=== PATIENT | male | born 1985 | race American Indian/Alaskan Native ===

== ENCOUNTER 2018-06-04 09:29 | Emergency (ER) | payer SELFPAY ==
[2018-06-04 09:33] VITALS: BP 126/77
== END 2018-06-04 15:18 | disposition left against medical advice (07) ==
LOC: ED 09:29 → EDSEX 09:29 → ED 15:18
DX: R10.10 Upper abdominal pain, unspecified (principal); Z53.21 Procedure and treatment not carried out due to patient leaving prior to being seen by health care provider

== ENCOUNTER 2018-07-17 10:46 | Emergency (ER) | payer SELFPAY ==
--- NOTE | 2018-07-17 13:03 | Emergency Department Report ---
Blank Doc - Documentation Documentation: Patient is a [age]-year-old who is here complaining of some mild abdominal crampiness left lower quadrant as well as 24 hours of bloody mucus per rectum. Patient denies any fever chills nausea or vomiting. Patient did have a slight head cold approximately week ago. Patient on focused physical exam has normal bowel sounds abdomen is soft and nontender. Patient has a picture of her stools which does show a small amount of blood surrounding brown stool. CBC was ordered to ensure the patient is not severely anemic patient be reassessed
[2018-07-17 13:20] LABS: Basophils % (Auto) 0.4 % (0.0-1.8); Eosinophils # (Auto) 0.1 K/mm3 (0.0-0.4); Eosinophils % (Auto) 1.7 % (0.0-4.3); Hematocrit 44.6 % (35.5-45.6); Hemoglobin 15.1 gm/dl (11.8-15.2); Lymphocytes # (Auto) 1.7 K/mm3 (1.2-5.4); Lymphocytes % (Auto) 25.9 % (13.4-35.0); Mean Corpuscular HGB Conc 34 % (32-34); Mean Corpuscular Hemoglobin 30 pg (28-32); Mean Corpuscular Volume 87 fl (84-94); Monocytes # (Auto) 0.7 K/mm3 (0.0-0.8); Monocytes % (Auto) 10.5 % (0.0-7.3); Platelet Count 206 K/mm3 (140-440); Red Blood Count 5.13 M/mm3 (3.65-5.03)
[2018-07-17 13:40] LABS: BUN/Creatinine Ratio 9; Blood Urea Nitrogen 6 mg/dL (9-20); Calcium 8.6 mg/dL (8.4-10.2); Hemolysis Index 26
--- NOTE | 2018-07-17 13:55 | Emergency Department Report ---
ED General Adult HPI - General Chief complaint: GI Bleed Stated complaint: BLOODY STOOL Time Seen by Provider: 07/17/18 12:55 Source: patient Mode of arrival: Ambulatory Limitations: No Limitations - History of Present Illness Initial comments: Patient is a 36 year-old who is here complaining of some mild abdominal crampiness left lower quadrant as well as 24 hours of bloody mucus per rectum. Patient denies any fever chills nausea or vomiting. Patient did have a slight head cold approximately week ago. Patient on focused physical exam has normal bowel sounds abdomen is soft and nontender. Patient has a picture of her stools which does show a small amount of blood surrounding brown stool. Severity scale (0 -10): 2 Quality: other (mild crampy pain) - Related Data Previous Rx's Medication Instructions Recorded Last Taken Type Ciprofloxacin HCl [Cipro] 500 mg PO BID #14 tablet 07/17/18 Unknown Rx Dicyclomine [Bentyl] 10 mg PO QID #15 capsule 07/17/18 Unknown Rx metroNIDAZOLE [Flagyl] 500 mg PO Q12HR #14 tab 07/17/18 Unknown Rx Allergies Allergy/AdvReac Type Severity Reaction Status Date / Time hydrocodone Allergy Angioedema Verified 06/04/18 09:28 ED Review of Systems ROS: Stated complaint: BLOODY STOOL Other details as noted in HPI Comment: All other systems reviewed and negative ED Past Medical Hx - Past Medical History Previous Medical History?: No - Surgical History Past Surgical History?: No - Social History Smoking Status: Never Smoker Substance Use Type: None - Medications Home Medications: Home Medications Medication Instructions Recorded Confirmed Last Taken Type Ciprofloxacin HCl [Cipro] 500 mg PO BID #14 tablet 07/17/18 Unknown Rx Dicyclomine [Bentyl] 10 mg PO QID #15 capsule 07/17/18 Unknown Rx metroNIDAZOLE [Flagyl] 500 mg PO Q12HR #14 tab 07/17/18 Unknown Rx ED Physical Exam - General Limitations: No Limitations General appearance: alert, in no apparent distress - Head Head exam: Present: atraumatic, normocephalic - Eye Eye exam: Present: normal appearance - ENT ENT exam: Present: mucous membranes moist - Neck Neck exam: Present: normal inspection - Respiratory Respiratory exam: Present: normal lung sounds bilaterally. Absent: respiratory distress, wheezes, rales, rhonchi - Cardiovascular Cardiovascular Exam: Present: regular rate, normal rhythm. Absent: systolic murmur, diastolic murmur, rubs, gallop - GI/Abdominal GI/Abdominal exam: Present: soft, normal bowel sounds. Absent: distended, tenderness, guarding, rebound - Rectal Rectal exam: Present: deferred - Extremities Exam Extremities exam: Present: normal inspection - Back Exam Back exam: Present: normal inspection - Neurological Exam Neurological exam: Present: alert, oriented X3 - Psychiatric Psychiatric exam: Present: normal affect, normal mood - Skin Skin exam: Present: warm, dry, intact, normal color. Absent: rash ED Course Vital Signs 07/17/18 12:05 Temperature 98.5 F Pulse Rate 70 Respiratory 16 Rate Blood Pressure 130/80 O2 Sat by Pulse 96 Oximetry ED Medical Decision Making - Lab Data Result diagrams: 07/17/18 13:12 07/17/18 13:09 - Medical Decision Making Patient will be referred to GI for continued bleeding. Patient empirically treated for possible colitis be discharged home. Patient is stable condition and not in distress. Critical care attestation.: If time is entered above; I have spent that time in minutes in the direct care of this critically ill patient, excluding procedure time. ED Disposition Clinical Impression: GI bleed Qualifiers: GI bleed type/associated pathology: unspecified gastrointestinal hemorrhage type Qualified Code(s): K92.2 - Gastrointestinal hemorrhage, unspecified Disposition: -01 TO HOME OR SELFCARE Is pt being admited?: No Does the pt Need Aspirin: No Condition: Stable Instructions: Gastrointestinal Bleeding (ED) Referrals: CASSANDRA HUSAIN MD [Staff Physician] - 3-5 Days Time of Disposition: 13:55
[2018-07-17 14:07] VITALS: BP 124/75
== END 2018-07-17 14:06 | disposition home or self-care (01) ==
LOC: ED 10:46
DX: K92.2 Gastrointestinal hemorrhage, unspecified (principal); Z88.5 Allergy status to narcotic agent
CPT/HCPCS: 36415; 80048; 85025; 99283

== ENCOUNTER 2019-03-20 17:49 | Emergency (ER) | payer OTHER ==
[2019-03-20 18:08] VITALS: BP 131/74
[2019-03-20] MEDS ORDERED: BICILLIN L-A IM ONE (19:26)
--- NOTE | 2019-03-20 19:48 | Emergency Department Report ---
ED General Adult HPI - General Chief complaint: Recheck/Abnormal Lab/Rx Stated complaint: STOMACH VIRUS Time Seen by Provider: 03/20/19 19:05 Source: patient Mode of arrival: Ambulatory Limitations: No Limitations - History of Present Illness Initial comments: Patient is a 33-year-old -[place] female with no past medical history presents to the ED requesting for treatment after being diagnosed with activity syphilis infection 2 weeks ago. Patient states that she tested positive for syphilis about 2 weeks ago and was referred to the health department for treatment but states that her appointment at the health department this one recovery and she cannot wait for that time to get her treatment. Patient denies abdominal pain, nausea, vomiting, fever, chills, dysuria, any genital rashes or lesions, vaginal discharge, headache, dizziness, chest pain or shortness of breath and sore throat. MD Complaint: Needs treatment for a recent positive RPR test -: Sudden, week(s) (2) Radiation: non-radiation Severity scale (0 -10): 0 Quality: other (none) Consistency: constant Improves with: none Associated Symptoms: denies: confusion, chest pain, cough, diaphoresis, fever/chills, headaches, loss of appetite, malaise, nausea/vomiting, rash, seizure, shortness of breath, syncope, weakness Treatments Prior to Arrival: none - Related Data Previous Rx's Medication Instructions Recorded Last Taken Type Ciprofloxacin HCl [Cipro] 500 mg PO BID #14 tablet 07/17/18 Unknown Rx Dicyclomine [Bentyl] 10 mg PO QID #15 capsule 07/17/18 Unknown Rx metroNIDAZOLE [Flagyl] 500 mg PO Q12HR #14 tab 07/17/18 Unknown Rx Fluconazole [Diflucan TAB] 150 mg PO ONCE #1 tablet 03/20/19 Unknown Rx Sulfamethoxazole/Trimethoprim 1 each PO Q12H #20 tablet 03/20/19 Unknown Rx [Bactrim DS TAB] Allergies Allergy/AdvReac Type Severity Reaction Status Date / Time hydrocodone Allergy Angioedema Verified 03/20/19 18:08 ED Review of Systems ROS: Stated complaint: STOMACH VIRUS Other details as noted in HPI Comment: All other systems reviewed and negative Constitutional: no symptoms reported, see HPI. denies: chills, fever, malaise, weakness Eyes: as per HPI. denies: eye pain, eye discharge, vision change ENT: as per HPI. denies: ear pain, throat pain, dental pain, hearing loss Respiratory: no symptoms reported, see HPI, cough. denies: shortness of breath, SOB with exertion, SOB at rest, wheezing Cardiovascular: as per HPI. denies: chest pain, palpitations, dyspnea on exertion, edema, syncope, paroxysmal nocturnal dyspnea Endocrine: no symptoms reported, see HPI. denies: excessive sweating, flushing, intolerance to cold, increased thirst Gastrointestinal: as per HPI. denies: abdominal pain, nausea, diarrhea, constipation, hematemesis Genitourinary: as per HPI. denies: urgency, dysuria, frequency, hematuria, discharge, abnormal menses Musculoskeletal: as per HPI Skin: as per HPI. denies: rash, lesions, change in color, change in hair/nails, pruritus Neurological: as per HPI. denies: headache, weakness, numbness, paresthesias Psychiatric: as per HPI Hematological/Lymphatic: as per HPI ED Past Medical Hx - Past Medical History Previous Medical History?: No - Surgical History Past Surgical History?: No - Social History Smoking Status: Never Smoker - Medications Home Medications: Home Medications Medication Instructions Recorded Confirmed Last Taken Type Ciprofloxacin HCl [Cipro] 500 mg PO BID #14 tablet 07/17/18 Unknown Rx Dicyclomine [Bentyl] 10 mg PO QID #15 capsule 07/17/18 Unknown Rx metroNIDAZOLE [Flagyl] 500 mg PO Q12HR #14 tab 07/17/18 Unknown Rx Fluconazole [Diflucan TAB] 150 mg PO ONCE #1 tablet 03/20/19 Unknown Rx Sulfamethoxazole/Trimethoprim 1 each PO Q12H #20 tablet 03/20/19 Unknown Rx [Bactrim DS TAB] ED Physical Exam - General Limitations: No Limitations General appearance: alert, in no apparent distress - Head Head exam: Present: atraumatic, normocephalic, normal inspection - Eye Eye exam: Present: normal appearance, PERRL, EOMI. Absent: scleral icterus, conjunctival injection, nystagmus, periorbital tenderness Pupils: Present: normal accommodation - ENT ENT exam: Present: normal exam, normal orophraynx, mucous membranes moist, TM's normal bilaterally, normal external ear exam - Neck Neck exam: Present: normal inspection. Absent: tenderness, meningismus, full ROM, lymphadenopathy - Respiratory Respiratory exam: Present: normal lung sounds bilaterally. Absent: respiratory distress, wheezes, rales, rhonchi - Cardiovascular Cardiovascular Exam: Present: regular rate, normal rhythm. Absent: bradycardia, tachycardia, irregular rhythm, normal heart sounds, systolic murmur - GI/Abdominal GI/Abdominal exam: Present: soft, normal bowel sounds. Absent: distended, tenderness, guarding, hyperactive bowel sounds, hypoactive bowel sounds - Rectal Rectal exam: Present: deferred - Extremities Exam Extremities exam: Present: normal inspection, normal capillary refill. Absent: full ROM, tenderness - Back Exam Back exam: Present: normal inspection, full ROM, tenderness. Absent: CVA tenderness (R), CVA tenderness (L), muscle spasm, paraspinal tenderness, verteb ral tenderness - Neurological Exam Neurological exam: Present: alert, oriented X3, CN II-XII intact, normal gait, reflexes normal - Psychiatric Psychiatric exam: Present: normal affect - Skin Skin exam: Present: warm, dry, intact, normal color. Absent: rash, cyanosis, diaphoretic, erythema ED Course Vital Signs 03/20/19 18:03 Temperature 98.1 F Pulse Rate 73 Respiratory 16 Rate Blood Pressure 131/74 O2 Sat by Pulse 99 Oximetry ED Medical Decision Making - Medical Decision Making Patient is alert and oriented 3 and is starting in distress with stable vital signs. Patient received penicillin 2.4 Million Units intramuscular injection. The UA test was positive for acute UTI. The patient was discharged home and advised follow-up with the health Department as previously scheduled for further evaluation. Patient discharged home on antibiotics for acute UTI. Patient advised to return to the ED immediately if symptoms get worse. - Differential Diagnosis Syphilis, Gonorrhea, acute UTI Critical care attestation.: If time is entered above; I have spent that time in minutes in the direct care of this critically ill patient, excluding procedure time. ED Disposition Clinical Impression: Sexually transmitted disease (STD), Syphilis (acquired), Acute urinary tract infection Disposition: TO HOME OR SELFCARE Is pt being admited?: No Does the pt Need Aspirin: No Condition: Stable Instructions: Sexually Transmitted Diseases (ED), Syphilis (ED), Urinary Tract Infection in Women (ED) Additional Instructions: FOLLOW UP WITH THE HEALTH DEPARTMENT PREVIOUSLY SCHEDULED. Prescriptions: Sulfamethoxazole/Trimethoprim [Bactrim DS TAB] 1 each PO Q12H #20 tablet Fluconazole [Diflucan TAB] 150 mg PO ONCE #1 tablet Referrals: [facility] [Outside] - 3-5 Days Time of Disposition: 19:57 Print Language: SAO TOMEAN
[2019-03-20 20:22] LABS: Bilirubin,Urine NEG (Negative); Blood,Urine NEG (Negative); Color,Urine Yellow (Yellow); Mucus,Urine FEW /HPF; Protein,Urine <15 mg/dL mg/dL (Negative)
[2019-03-20 20:24] LABS: HCG Qualitative,Urine Negative (Negative)
== END 2019-03-20 20:53 | disposition home or self-care (01) ==
LOC: EDSEX → ED 17:49
DX: A53.9 Syphilis, unspecified (principal); N39.0 Urinary tract infection, site not specified; Z88.5 Allergy status to narcotic agent
CPT/HCPCS: 81001; 81025; 90471; 99283; J0561; 96372

== ENCOUNTER 2019-04-15 01:11 | Emergency (ER) | payer OTHER ==
--- NOTE | 2019-04-15 03:17 | Emergency Department Report ---
[facility] Chief Complaint: Eye Problems Stated Complaint: PINK EYE IN BOTH EYES Time Seen by Provider: 04/15/19 03:02 Duration: 2 Days Side: Bilateral Severity: mild Symptoms: Yes Eye Redness, Yes Eye Pain, Yes Purulent Drainage, No Eye Itching, No Blurred Vision, No Preceding URI, No H/O Allergic Rhinitis, No Contact Lens Use, No Trauma, No Fever, No Headache ED Review of Systems ROS: Stated complaint: PINK EYE IN BOTH EYES Other details as noted in HPI Constitutional: denies: chills, fever Eyes: denies: eye pain, eye discharge, vision change ENT: denies: ear pain, throat pain Respiratory: denies: cough, shortness of breath, wheezing Cardiovascular: denies: chest pain, palpitations Endocrine: no symptoms reported Gastrointestinal: denies: abdominal pain, nausea, diarrhea Genitourinary: denies: urgency, dysuria, discharge Musculoskeletal: denies: back pain, joint swelling, arthralgia Skin: denies: rash, lesions Neurological: denies: headache, weakness, paresthesias Psychiatric: denies: anxiety, depression Hematological/Lymphatic: denies: easy bleeding, easy bruising ED Past Medical Hx - Social History Smoking Status: Never Smoker - Medications Home Medications: Home Medications Medication Instructions Recorded Confirmed Last Taken Type Ciprofloxacin HCl [Cipro] 500 mg PO BID #14 tablet 07/17/18 Unknown Rx Dicyclomine [Bentyl] 10 mg PO QID #15 capsule 07/17/18 Unknown Rx metroNIDAZOLE [Flagyl] 500 mg PO Q12HR #14 tab 07/17/18 Unknown Rx Fluconazole [Diflucan TAB] 150 mg PO ONCE #1 tablet 03/20/19 Unknown Rx Sulfamethoxazole/Trimethoprim 1 each PO Q12H #20 tablet 03/20/19 Unknown Rx [Bactrim DS TAB] Tobramycin [Tobrex] 1 drop OP Q4H #1 bottle 04/15/19 Unknown Rx [facility] Exam - Exam General: Vital signs noted. No distress. Alert and acting appropriately. Eye Exam: Right Injection, Right Mucous Discharge, Neither Chemosis, Neither Abnormal Pupil, Neither EOMI, Neither Eye Foreign Body, Neither Lid Foreign Body, Neither Purulent Discharge, Neither Fluorescein Uptake, Neither Fluorescein Uptake (slit lamp), Neither Cell/Flare (slit lamp), Neither Corneal Edema, Neither Photophobia HEENT: No Nasal Congestion, No Pharyngeal Erythema Remainder of HEENT: Normal Lungs: Yes Clear Lung Sounds, Yes Good Air Exchange, No Wheezes, No Stridor, No Cough, No Nasal Flaring, No Retractions ED Course Vital Signs 04/15/19 01:18 Temperature 98.0 F Pulse Rate 70 Respiratory 20 Rate Blood Pressure 116/65 O2 Sat by Pulse 95 Oximetry Critical care attestation.: If time is entered above; I have spent that time in minutes in the direct care of this critically ill patient, excluding procedure time. ED Disposition Clinical Impression: Conjunctivitis Disposition: DC-01 TO HOME OR SELFCARE Is pt being admited?: No Does the pt Need Aspirin: No Condition: Stable Instructions: Conjunctivitis (ED) Prescriptions: Tobramycin [Tobrex] 1 drop OP Q4H #1 bottle Referrals: MANISH AGUAYO MD [Primary Care Provider] - 3-5 Days
[2019-04-15 03:45] VITALS: BP 113/67
== END 2019-04-15 03:46 | disposition home or self-care (01) ==
LOC: ED 01:11
DX: H10.9 Unspecified conjunctivitis (principal); Z88.6 Allergy status to analgesic agent
CPT/HCPCS: 99281

== ENCOUNTER 2019-04-19 16:32 | Emergency (ER) | payer SELFPAY ==
--- NOTE | 2019-04-19 19:18 | Emergency Department Report ---
Eye Injury/Foreign Body - HPI Duration: 3 Days Eye Location: Bilateral Severity: Moderate Tetanus Status: Up to Date Eye Symptoms: Eye Pain: Yes, Blurred Vision: No, Eye Redness: Yes, Grinding/Hammering Metal: No, Used Eye Protection: No, Contact Lens Use: No, Recalls Injury: No, Photophobia: Yes (sunlight only) Other History: 33-year-old -[place] female comes in for complaints of irritation and swelling to eyes. Patient reports that she was seen here on 04/15/2019 and was prescribed tobramycin eyedrops for conjunctivitis. Patient reports that her eyes have gotten worse now with light sensitivity to sunlight. Patient reports that the eyes are throbbing and achy. Patient denies any vision deficits. Patient denies any fever no chills. ED Review of Systems ROS: Stated complaint: EYE PAIN/EXTREME Other details as noted in HPI ED Past Medical Hx - Past Medical History Previous Medical History?: No - Surgical History Past Surgical History?: No - Social History Smoking Status: Current Some Day Smoker Substance Use Type: Alcohol, Marijuana - Medications Home Medications: Home Medications Medication Instructions Recorded Confirmed Last Taken Type Ciprofloxacin HCl [Cipro] 500 mg PO BID #14 tablet 07/17/18 Unknown Rx Dicyclomine [Bentyl] 10 mg PO QID #15 capsule 07/17/18 Unknown Rx metroNIDAZOLE [Flagyl] 500 mg PO Q12HR #14 tab 07/17/18 Unknown Rx Fluconazole [Diflucan TAB] 150 mg PO ONCE #1 tablet 03/20/19 Unknown Rx Sulfamethoxazole/Trimethoprim 1 each PO Q12H #20 tablet 03/20/19 Unknown Rx [Bactrim DS TAB] Tobramycin [Tobrex] 1 drop OP Q4H #1 bottle 04/15/19 Unknown Rx Ketotifen Fumarate [Zaditor] 1 drop OU QDAY #1 bottle 04/19/19 Unknown Rx Eye Injury Exam - Exam General: Vital signs noted. No distress. Alert and acting appropriately. General: - Head Head exam: Present: atraumatic, normocephalic EYE: PERRL, EOMI, conjunctiva and sclera are injected no discharge appreciated puffy edema around the eyes nontender to palpate ENT exam: Present: normal exam, normal orophraynx, mucous membranes moist, normal external ear exam, no lymphadenopathy - Neck Neck exam: Present: normal inspection, full ROM. Absent: tenderness, meningismus - Neurological Exam Neurological exam: Present: alert, oriented X3, normal gait, other (Extraocular movements intact. Tongue midline. No facial droop. Facial sensation intact to light touch in the V1, V2, V3 distribution bilaterally. - Psychiatric Psychiatric exam: normal affect and mood - Skin Skin exam: Present: warm, dry, intact, normal color. Absent: rash ED Course Vital Signs 04/19/19 16:41 Temperature 98.2 F Pulse Rate 91 H Respiratory 18 Rate Blood Pressure 143/80 O2 Sat by Pulse 99 Oximetry ED Medical Decision Making - Medical Decision Making 33-year-old female comes in for eye irritation after using tobramycin. Patient was treated for conjunctiva and has gotten worse after using tobramycin. Discussed the patient discontinue tobramycin U Zaditor and follow-up with an cardiology specialist. I have listed several below for her convenience. Verbalized understanding. Critical care attestation.: If time is entered above; I have spent that time in minutes in the direct care of this critically ill patient, excluding procedure time. ED Disposition Clinical Impression: Conjunctivitis Disposition: DC-01 TO HOME OR SELFCARE Is pt being admited?: No Does the pt Need Aspirin: No Condition: Stable Instructions: Conjunctivitis (ED) Additional Instructions: Please discontinue tobramycin start Zaditor. If his symptoms persist please follow up with an cardiology specialist I have listed several below for your convenience. Prescriptions: Ketotifen Fumarate [Zaditor] 1 drop OU QDAY #1 bottle Referrals: DARIA VANN MD [Staff Physician] - 3-5 Days [facility] [Provider Group] - 3-5 Days [facility] [Provider Group] - 3-5 Days Forms: Work/School Release Form(ED)
[2019-04-19 19:24] VITALS: BP 124/72
== END 2019-04-19 19:24 | disposition home or self-care (01) ==
LOC: ED 16:32
DX: H10.9 Unspecified conjunctivitis (principal); F17.200 Nicotine dependence, unspecified, uncomplicated; F12.10 Cannabis abuse, uncomplicated; Z88.5 Allergy status to narcotic agent